=== PATIENT | male | born 1960 | race Caucasian/White ===

== ENCOUNTER 2017-02-09 09:31 | Observation (INO) | payer BC ==
[~2017-02-09] VITALS: Ht 180.3 cm; Wt 98.3 kg
[~2017-02-09 09:31] MED LIST: ADVIL200 MG PO; ASCO-TABS-1001000 MG PO; ASPIRIN325 MG PO; ATORVASTATIN CA80 MG PO; Aspirin E.C. PO; CLOPIDOGREL75 MG PO; COLACE100 MG PO; Cinnamon Bark PO; DEXILANT60 MG PO; FLEXERIL5 MG PO; Fish Oil PO; GEMFIBROZIL600 MG PO; KAPIDEX60 MG PO; LEVEMIR FL100 UNITS/ SC; LIPITOR80 MG PO; LISINOPRIL2.5 MG PO; LOPID600 MG PO; LOPRESSOR25 MG PO; Lopid PO; MELOXICAM15 MG PO; METFORMIN HCL1000 MG PO; METOPROLOL TART25 MG PO; NAPROSYN375 MG PO; NITROSTAT,NITR0.4 M1 SL; NITROSTAT0.4 MG SL; NOVOLOG PE100 UNITS/ SC; PLAVIX75 MG PO; TOPROL XL50 MG PO; TYLENOL EXTRA500 MG PO; VICODIN 5-3001 EACH PO; Zestril,Prinivil PO
[2017-02-09 10:28] LABS: HEMATOCRIT 46.7 % (38.0-50.0); MCH 27.9 PG (29.0-34.0); MCHC 32.3 G/DL (30.0-36.0); MCV 86.2 FL (86-99); MEAN PLAT.VOLUME 9.6 uM^3 (9.0-12.4); PLATELET COUNT 224 K/uL (156-360); RBC DIS.WIDTH-SD 40.1 % (39-53); RED BLOOD COUNT 5.42 M/uL (4.00-5.50); WHITE BLOOD COUNT 6.9 K/uL (4.1-10.2)
[2017-02-09 10:44] LABS: CHLORIDE 104 mEq/L (99-109); POTASSIUM 4.6 mEq/L (3.7-5.4); SODIUM 139 mEq/L (136-147)
[2017-02-09 10:46] LABS: GLUCOSE 184 mg/dL (70-99)
[2017-02-09 10:47] LABS: ANION GAP 12 MEQ/L (2-14)
[2017-02-09 10:50] LABS: GFR ESTIMATE (CALCULATED) > 59 mL/min/
[2017-02-09 10:51] LABS: TROP-I INTERPRETATION NEGATIVE; TROPONIN-I < 0.01 ng/mL (0.0-0.30); UREA NITROGEN (BUN) 19 mg/dL (9-23)
[2017-02-09] MEDS ORDERED: METOPROLOL SUCC25 MG PO (15:33)
[2017-02-09] MEDS ORDERED: TRESIBA FL100 UNIT/1 SC (15:34)
[2017-02-09] MEDS ORDERED: LEVEMIR FL100 UNIT/1 SC (15:35)
[2017-02-09] MEDS ORDERED: TRULICITY0.75 MG/0. SC (15:38)
[2017-02-09] MEDS ORDERED: LO-DOSE ASPIRIN81 M2 PO (15:47)
[2017-02-09] MEDS ORDERED: INVOKANA300 MG PO (15:48)
[2017-02-09 17:08] LABS: TOTAL CHOLESTEROL 200 mg/dL (Desirable<200); TRIGLYCERIDES 375 MG/DL (Normal: <150)
[2017-02-09 17:09] LABS: HDL CHOLESTEROL 35 MG/DL (Desirable>=40); LDL CHOLESTEROL 90 mg/dL (Desirable<100); NON-HDL CHOLESTEROL 165 mg/dL (Desirable<160)
[2017-02-09 17:17] VITALS: BP 124/78
[2017-02-09 17:26] LABS: POINT-OF-CARE METER ID UU13113831
[2017-02-09 19:32] LABS: TROP-I INTERPRETATION NEGATIVE; TROPONIN-I < 0.01 ng/mL (0.0-0.30)
[2017-02-09 20:00] VITALS: BP 96/54
[2017-02-09 21:48] LABS: POINT-OF-CARE METER ID UU13113831
[2017-02-09 21:51] LABS: Estimated Average Glucose 217 mg/dL (70-123); HEMOGLOBIN A1c (GLYCOHEMOGLOB) 9.2 % HGB (Below 5.7)
[2017-02-10 00:33] VITALS: BP 110/66
[2017-02-10 03:00] LABS: TROP-I INTERPRETATION NEGATIVE; TROPONIN-I < 0.01 ng/mL (0.0-0.30)
[2017-02-10 04:00] VITALS: BP 96/66
[2017-02-10 08:17] LABS: ANION GAP 8 MEQ/L (2-14); CHLORIDE 104 MEQ/L (99-109); GFR ESTIMATE (CALCULATED) > 59 mL/min/; GLUCOSE 126 mg/dL (70-99); POTASSIUM 4.3 MEQ/L (3.7-5.4); SAMPLE HEMOLYSIS CHECK 0; SAMPLE ICTERIC CHECK 0; SAMPLE LIPEMIA CHECK 0; SODIUM 139 MEQ/L (136-147); UREA NITROGEN (BUN) 17 mg/dL (9-23)
[2017-02-10 08:40] VITALS: BP 102/62
[2017-02-10] MEDS ORDERED: TRULICITY1.5 MG/0.5 SC (11:24)
[2017-02-10] MEDS ORDERED: TRESIBA FL200 UNIT/1 SC (11:25)
[2017-02-10 11:48] VITALS: BP 110/68
[2017-02-10 12:11] LABS: POINT-OF-CARE METER ID UU13113831
== END 2017-02-10 14:12 | disposition home or self-care (01) ==
LOC: EME 09:31 → EDOF 16:16 → 5WEST 16:16 → EDOF 16:16 → 5WEST 16:59
PROVIDERS: Hospitalist; Internal Medicine
DX: R07.89 Other chest pain (principal); I25.10 Atherosclerotic heart disease of native coronary artery without angina pectoris; E11.65 Type 2 diabetes mellitus with hyperglycemia; Z79.4 Long term (current) use of insulin; E78.5 Hyperlipidemia, unspecified; Z95.5 Presence of coronary angioplasty implant and graft; K21.9 Gastro-esophageal reflux disease without esophagitis; G47.33 Obstructive sleep apnea (adult) (pediatric); F32.9 Major depressive disorder, single episode, unspecified; G43.909 Migraine, unspecified, not intractable, without status migrainosus; Z87.891 Personal history of nicotine dependence; F41.9 Anxiety disorder, unspecified; E66.9 Obesity, unspecified; Z68.30 Body mass index [BMI] 30.0-30.9, adult
CPT/HCPCS: 71020; 71275; 80048; 80061; 82948; 83036; 84484; 85027; 93005; 99281; 99285; G0378; J1650; J1815; J7030

== ENCOUNTER 2017-12-01 14:56 | Emergency (ER) | payer BC ==
[~2017-12-01] VITALS: Ht 180.3 cm; Wt 93.0 kg
[~2017-12-01 14:56] MED LIST changes: +INVOKANA300 MG PO; +LEVEMIR FL100 UNIT/1 SC; +LO-DOSE ASPIRIN81 M2 PO; +METOPROLOL SUCC25 MG PO; +TRESIBA FL100 UNIT/1 SC; +TRESIBA FL200 UNIT/1 SC; +TRULICITY0.75 MG/0. SC; +TRULICITY1.5 MG/0.5 SC
[2017-12-01] MEDS ORDERED: KEFLEX500 MG PO (18:09)
[2017-12-01] MEDS ORDERED: NORCO 7.5/321 TABLET PO (18:10)
[2017-12-01 18:49] VITALS: BP 124/83
== END 2017-12-01 18:52 | disposition home or self-care (01) ==
LOC: EDSEX 14:56 → EME 14:56 → RME 14:56 → EME 14:56 → RME 18:52
PROC: 2Y41X5Z Packing of Nasal Region using Packing Material (ICD-10-PCS; principal; 2017-12-01)
DX: R04.0 Epistaxis (principal); S00.33XA Contusion of nose, initial encounter; W22.8XXA Striking against or struck by other objects, initial encounter; Z79.02 Long term (current) use of antithrombotics/antiplatelets; E11.9 Type 2 diabetes mellitus without complications; E78.5 Hyperlipidemia, unspecified; I25.10 Atherosclerotic heart disease of native coronary artery without angina pectoris; Z95.5 Presence of coronary angioplasty implant and graft; Z87.891 Personal history of nicotine dependence
CPT/HCPCS: 70160; 99281; 99284; J3010